=== PATIENT | male | born 1955 | race Caucasian/White ===

== ENCOUNTER → 2023-09-23 16:02 | Outpatient (REF) | payer OTHER, SELFPAY | LOC: RAD 16:02 | PROVIDERS: ATTENDING PHYSICIAN Nurse Practitioner | DX: M25.551 Pain in right hip (principal) | CPT/HCPCS: 73502 ==

== ENCOUNTER → 2023-11-28 08:25 | Outpatient (REF) | payer OTHER, SELFPAY | LOC: PAVMRI 08:25 | PROVIDERS: ATTENDING PHYSICIAN Nurse Practitioner | DX: M25.551 Pain in right hip (principal); Z96.641 Presence of right artificial hip joint | CPT/HCPCS: 73721 ==

== ENCOUNTER → 2024-02-23 12:28 | Outpatient (REF) | payer OTHER, SELFPAY | LOC: MRI 3T 12:28 | PROVIDERS: ATTENDING PHYSICIAN Psychiatry & Neurology Vascular Neurology; FAMILY PHYSICIAN Nurse Practitioner | DX: G31.84 Mild cognitive impairment of uncertain or unknown etiology (principal) | CPT/HCPCS: 70551 ==

== ENCOUNTER 2024-03-17 16:06 | Outpatient (RCR) | payer OTHER, SELFPAY | END 2024-03-17 23:59 | disposition home or self-care (01) | LOC: RPT 16:06 | PROVIDERS: ATTENDING PHYSICIAN Nurse Practitioner | DX: M25.551 Pain in right hip (principal); R20.0 Anesthesia of skin; R20.2 Paresthesia of skin; R26.89 Other abnormalities of gait and mobility; Z96.643 Presence of artificial hip joint, bilateral | CPT/HCPCS: 97110; 97162; 97535 ==

== ENCOUNTER 2024-08-18 06:17 | Day surgery (SDC) | payer OTHER, SELFPAY ==
[2024-08-18 07:05] LABS: Glucose - Point of Care 114 mg/dl (70-99)
== END 2024-08-18 08:25 | disposition home or self-care (01) ==
LOC: GI 06:17
PROVIDERS: ATTENDING PHYSICIAN Internal Medicine Gastroenterology
DX: Z12.11 Encounter for screening for malignant neoplasm of colon (principal); D12.0 Benign neoplasm of cecum; D12.2 Benign neoplasm of ascending colon; K57.30 Diverticulosis of large intestine without perforation or abscess without bleeding; K64.8 Other hemorrhoids; Z86.0100 Personal history of colon polyps, unspecified
CPT/HCPCS: 45385; 88305; 82962

== ENCOUNTER → 2024-12-24 15:32 | Outpatient (REF) | payer OTHER, SELFPAY ==
[2024-12-24 16:11] LABS: ALT (SGPT) 30 U/L (0-50); AST (SGOT) 20 U/L (17-59); Albumin 4.5 g/dl (3.5-5.0); Alkaline Phosphatase 86 U/L (38-126); Blood Urea Nitrogen 18 mg/dl (9-20); Calcium 9.4 mg/dl (8.4-10.2); Carbon Dioxide 29 mmol/L (22-30); Chloride 102 mmol/L (98-107); Glucose 110 mg/dl (70-99); Potassium 4.3 mmol/L (3.5-5.1); Sodium 139 mmol/L (135-145); Total Protein 6.9 g/dl (6.3-8.2); eGFR > 60.00
== END ==
LOC: REG 15:32
PROVIDERS: ATTENDING PHYSICIAN Nurse Practitioner
DX: R10.32 Left lower quadrant pain (principal)
CPT/HCPCS: 36415; 80053

== ENCOUNTER → 2024-12-27 08:02 | Outpatient (REF) | payer OTHER, SELFPAY | LOC: RAD 08:02 | PROVIDERS: ATTENDING PHYSICIAN Nurse Practitioner | DX: R10.32 Left lower quadrant pain (principal) | CPT/HCPCS: 74177; Q9967 ==

== ENCOUNTER → 2025-01-05 07:25 | Outpatient (REF) | payer OTHER, SELFPAY | LOC: EMG 07:25 | PROVIDERS: ATTENDING PHYSICIAN Nurse Practitioner | DX: R20.2 Paresthesia of skin (principal); R20.0 Anesthesia of skin | CPT/HCPCS: 95886; 95911 ==